=== PATIENT | female | born 1980 | race African-American/Black ===

== ENCOUNTER 2018-01-16 18:29 | Emergency (ER) | payer OTHER ==
[2018-01-16 18:58] VITALS: RESP 18
[2018-01-16] MEDS ORDERED: PANTOPRAZOLE 40 MG/10 ML VIAL IVP STA (20:01)
[2018-01-16] MEDS ORDERED: SODIUM CHLORIDE 0.9% 500 ML IV STA (20:01)
[2018-01-16] MEDS ORDERED: ONDANSETRON 4 MG/2 ML VIAL IVP STA (20:01)
[2018-01-16] MEDS ORDERED: SODIUM CHLORIDE 0.9% 1,000 ML IV STA (20:01)
--- NOTE | 2018-01-16 20:07 | ED ---
General Adult HPI - General Chief complaint: Chest Pain Stated complaint: Chest Discomfort/Back Pain Time Seen by Provider: 01/16/18 19:49 Source: patient, RN notes reviewed Mode of arrival: ambulatory Limitations: no limitations - History of Present Illness Initial comments: Chief complaint history of present illness a 37-year-old female reports that she went to bed last night feeling fine. She awakened this morning with pain to her right flank area. She states her urine is darker than normal. Also complains of pain to her chest with deep breathing. Nausea no vomiting no diarrhea. She reports she did have sweats throughout the day when she was getting her acute attacks of pain to her right flank area. She also reports that there was approximately one hour when the pain is gone away. And then it restarted. - Related Data Previous Rx's Medication Instructions Recorded Hydrocodone/Acetaminophen [[place] 1 each PO Q6HR PRN #10 tab 01/16/18 5-325] Ondansetron Odt [Zofran Odt] 4 mg PO Q8HR PRN #10 tab 01/16/18 Tamsulosin [Flomax] 0.4 mg PO DAILY #5 cap 01/16/18 Allergies Allergy/AdvReac Type Severity Reaction Status Date / Time ketorolac [From Toradol] Allergy Rash/Hives Verified 01/16/18 22:34 Penicillins Allergy Unknown Verified 01/16/18 22:34 Childhood sumatriptan [From Imitrex] Allergy Rash/Hives Verified 01/16/18 22:34 Review of Systems ROS Statement: Those systems with pertinent positive or pertinent negative responses have been documented in the HPI. Review of systems no headache or visual acuity changes chest pain occurs when she takes deep breaths. She has persistent right flank pain radiates around toward the right groin area. States her urine is usually light colored but now is darker in color. Mild discomfort with urinating. Denies any fever or chills. Reports she has been diaphoretic with her nausea. No neuro deficits. All systems are reviewed. Past medical problems significant for having had surgeries followed by areas of large hematomas necessitating at one time a transfusion. Denies ever having had blood clots. She has had surgeries include cholecystectomy, resection C- section total hysterectomy due to endometriosis. Family history cancers include a great-grandmother throat cancer. Patient has ALLERGIES to ketorolac which causes hives penicillin and sumatriptan. The patient does smoke strongly encouraged to stop denies alcohol use. ROS Other: All systems not noted in ROS Statement are negative. Past Medical History Additional Past Medical History / Comment(s): Blood clots History of Any Multi-Drug Resistant Organisms: None Reported Past Surgical History: Bowel Resection, Section, Hysterectomy Past Psychological History: No Psychological Hx Reported Smoking Status: Current every day smoker Past Alcohol Use History: None Reported Past Drug Use History: Marijuana General Exam - General Exam Comments Initial Comments: General: The patient is awake and alert, here with complaints of pain from the right flank area from the front and sometimes chest pain with deep breathing. Sweats nausea but no vomiting. No diarrhea. Vital signs show temperature 98.3 pulse 87 respiratory rate 18 pulse ox 99% room air blood pressure 151/89 in no distress, and does not appear acutely ill. Eye: Pupils are equal, round and reactive to light, extra-ocular movements are intact ; there is normal conjunctiva bilaterally. No signs of icterus. Ears, nose, mouth and throat: There are moist mucous membranes and no oral lesions. Neck: The neck is supple, there is no tenderness . Cardiovascular: There is a regular rate and rhythm. No murmur, rub or gallop is appreciated. Respiratory: Lungs are clear to auscultation, respirations are non-labored, breath sounds are equal. No wheezes, stridor, rales, or rhonchi. Patient states deep breathing does increase chest discomfort. Gastrointestinal: Soft, non-distended, non-tender abdomen without masses or organomegaly noted. There is no rebound or guarding present. No CVA tenderness. Bowel sounds are unremarkable. Back: There is tenderness to palpation in the midline. There is no obvious deformity. Positive right-sided kidney punch. Musculoskeletal: Normal ROM, no tenderness, There is no pedal edema. There is no calf tenderness or swelling. Sensation intact. Pulses equal bilaterally 2+. Neurological: No neuro deficits. Skin: Skin is warm and dry and no rashes or lesions are noted. No rashes and early shingles was discussed. Psychiatric: Cooperative, Limitations: no limitations Course Vital Signs 01/16/18 01/16/18 01/16/18 18:55 21:00 22:16 Temperature 98.3 F Pulse Rate 87 83 96 Respiratory 18 18 18 Rate Blood Pressure 151/89 136/75 139/87 O2 Sat by Pulse 99 96 98 Oximetry EKG Findings - EKG Comments: EKG Findings:: EKG was done and reviewed at 1915 showing normal sinus rhythm no acute ST elevation no ectopy no ischemic changes. Rate was 79 CA interval is 144 QRS 90 QT [address] Blas Medical Decision Making - Medical Decision Making Medical decision making; is a 37-year-old female presents emergency room with several complaints 1 chest discomfort with deep breathing. Also right flank pain that radiates to the right lower quadrant with dark colored urine. Patient denies ever having a kidney stone. She does complain of nausea but no vomiting no diarrhea. She does get sweaty when the pain comes. There are times when the pain entirely goes away. The patient's labs show white count of 9 hemoglobin 11.8 hematocrit of 35.9. Potassium 4.3 with a BUN 21 creatinine 0.8 and GFR greater than 90. Glucose 107. Urine shows 28 red cells. No white cells. Chest x-ray is done and reviewed by radiologist. His impression is no acute process. As read by Dr. Damir Ocampo x-ray of the abdomen was done 2 views and reviewed by radiologist his impression is alcohol gas pattern is normal. No pneumoperitoneum or normal ptosis. No definite calcifications over the renal shadows or the expected course of the ureters or urinary bladder. Soft tissues are unremarkable. Skeletal structures are unremarkable. Visualized lung bases and pleural spaces are unremarkable. Pressure no acute process. As read by Dr. Damir Ocampo. While in the emergency the patient had acute episode of increased pain with nausea. She states she can take morphine which was administered. The patient will have a CAT scan without contrast rule out right ureterolithiasis. Patient did receive partial relief of the pain from the right flank. We did discuss kidney stones etc. CT of the abdomen was done without contrast. And reviewed by radiologist. His significant findings would include kidneys and ureters and bladder there was no hydronephrosis or hydroureter. There are 21 mm right renal nonobstructing calcifications are noted. Bowel no significant abnormality seen. The appendix is normal appearance. It is retrocecal position. Impression no acute process as read by Dr. Damir Ocampo. Clinically still appears though the patient is having renal colic from a renal stone. She may have passed the stone while here. The patient states she wants to go home. The patient be taking a taxi home. Advised to follow with family physician return emergency room as needed. Continue on pain medications and medicine for nausea and the strain her urine for kidney stone. - Lab Data Result diagrams: 01/16/18 20:38 01/16/18 20:38 Lab Results 01/16/18 01/16/18 01/16/18 Range/Units 20:38 20:38 20:38 WBC 9.1 (3.8-10.6) k/uL RBC 4.25 (3.80-5.40) m/uL Hgb 11.8 (11.4-16.0) gm/dL Hct 35.9 (34.0-46.0) % MCV 84.5 (80.0-100.0) fL MCH 27.7 (25.0-35.0) pg MCHC 32.8 (31.0-37.0) g/dL RDW 14.6 (11.5-15.5) % Plt Count 199 (150-450) k/uL Neutrophils % 74 % Lymphocytes % 20 % Monocytes % 4 % Eosinophils % 2 % Basophils % 0 % Neutrophils # 6.7 (1.3-7.7) k/uL Lymphocytes # 1.8 (1.0-4.8) k/uL Monocytes # 0.3 (0-1.0) k/uL Eosinophils # 0.2 (0-0.7) k/uL Basophils # 0.0 (0-0.2) k/uL Sodium 144 (137-145) mmol/L Potassium 4.3 (3.5-5.1) mmol/L Chloride 106 (98-107) mmol/L Carbon Dioxide 25 (22-30) mmol/L Anion Gap 13 mmol/L BUN 21 H (7-17) mg/dL Creatinine 0.80 (0.52-1.04) mg/dL Est GFR (CKD-EPI)AfAm >90 (>60 ml/min/1.73 sqM) Est GFR (CKD-EPI)NonAf >90 (>60 ml/min/1.73 sqM) Glucose 107 H (74-99) mg/dL Plasma Lactic Acid [place] (0.7-2.0) mmol/L Calcium 9.7 (8.4-10.2) mg/dL Total Bilirubin 0.2 (0.2-1.3) mg/dL AST 16 (14-36) U/L ALT 23 (9-52) U/L Alkaline Phosphatase 119 (38-126) U/L Total Creatine Kinase 127 (30-135) U/L CK-MB (CK-2) 0.7 (0.0-2.4) ng/mL CK-MB (CK-2) Rel Index 0.6 Troponin I <0.012 (0.000-0.034) ng/mL Total Protein 6.8 (6.3-8.2) g/dL Albumin 4.0 (3.5-5.0) g/dL Amylase 48 (30-110) U/L Lipase 100 (23-300) U/L Urine Color Urine Appearance (Clear) Urine pH (5.0-8.0) Ur Specific [place] (1.001-1.035) Urine Protein (Negative) Urine Glucose (UA) (Negative) Urine Ketones (Negative) Urine Blood (Negative) Urine Nitrite (Negative) Urine Bilirubin (Negative) Urine Urobilinogen (<2.0) mg/dL Ur Leukocyte Esterase (Negative) Urine RBC (0-5) /hpf Ur Squamous Epith Cells (0-4) /hpf Urine Bacteria (None) /hpf Urine Mucus (None) /hpf 01/16/18 01/16/18 Range/Units 20:38 20:38 WBC (3.8-10.6) k/uL RBC (3.80-5.40) m/uL Hgb (11.4-16.0) gm/dL Hct (34.0-46.0) % MCV (80.0-100.0) fL MCH (25.0-35.0) pg MCHC (31.0-37.0) g/dL RDW (11.5-15.5) % Plt Count (150-450) k/uL Neutrophils % % Lymphocytes % % Monocytes % % Eosinophils % % Basophils % % Neutrophils # (1.3-7.7) k/uL Lymphocytes # (1.0-4.8) k/uL Monocytes # (0-1.0) k/uL Eosinophils # (0-0.7) k/uL Basophils # (0-0.2) k/uL Sodium (137-145) mmol/L Potassium (3.5-5.1) mmol/L Chloride (98-107) mmol/L Carbon Dioxide (22-30) mmol/L Anion Gap mmol/L BUN (7-17) mg/dL Creatinine (0.52-1.04) mg/dL Est GFR (CKD-EPI)AfAm (>60 ml/min/1.73 sqM) Est GFR (CKD-EPI)NonAf (>60 ml/min/1.73 sqM) Glucose (74-99) mg/dL Plasma Lactic Acid [place] 0.9 (0.7-2.0) mmol/L Calcium (8.4-10.2) mg/dL Total Bilirubin (0.2-1.3) mg/dL AST (14-36) U/L ALT (9-52) U/L Alkaline Phosphatase (38-126) U/L Total Creatine Kinase (30-135) U/L CK-MB (CK-2) (0.0-2.4) ng/mL CK-MB (CK-2) Rel Index Troponin I (0.000-0.034) ng/mL Total Protein (6.3-8.2) g/dL Albumin (3.5-5.0) g/dL Amylase (30-110) U/L Lipase (23-300) U/L Urine Color Light Yellow Urine Appearance Clear (Clear) Urine pH 6.5 (5.0-8.0) Ur Specific [place] 1.019 (1.001-1.035) Urine Protein Negative (Negative) Urine Glucose (UA) Negative (Negative) Urine Ketones Negative (Negative) Urine Blood Moderate H (Negative) Urine Nitrite Negative (Negative) Urine Bilirubin Negative (Negative) Urine Urobilinogen <2.0 (<2.0) mg/dL Ur Leukocyte Esterase Negative (Negative) Urine RBC 28 H (0-5) /hpf Ur Squamous Epith Cells 2 (0-4) /hpf Urine Bacteria Rare H (None) /hpf Urine Mucus Rare H (None) /hpf Disposition Clinical Impression: Renal colic on right side, Ureterolithiasis Disposition: HOME SELF-CARE Condition: Fair Instructions: Kidney Stones (ED), Renal Colic (ED) Additional Instructions: Increase fluids. Use pain medication as directed. Strain her urine. Follow- up with family physician is unable to control the pain returned emergency room. Follow-up with urology as needed. Take medication for nausea. Prescriptions: Hydrocodone/Acetaminophen [[place] 5-325] 1 each PO Q6HR PRN #10 tab PRN Reason: Pain Ondansetron Odt [Zofran Odt] 4 mg PO Q8HR PRN #10 tab PRN Reason: Nausea Tamsulosin [Flomax] 0.4 mg PO DAILY #5 cap Referrals: Nonstaff,Physician [REFERRING] - 1-2 days Time of Disposition: 22:59
[2018-01-16 20:51] LABS: Basophils % (A) 0 %; Eosinophils # (A) 0.2 k/uL (0-0.7); Eosinophils % (A) 2 %; HCT 35.9 % (34.0-46.0); HGB 11.8 gm/dL (11.4-16.0); Lymphocytes # (A) 1.8 k/uL (1.0-4.8); Lymphocytes % (A) 20 %; MCH 27.7 pg (25.0-35.0); MCHC 32.8 g/dL (31.0-37.0); MCV 84.5 fL (80.0-100.0); Mean Platelet Volume 8.4; Monocytes # (A) 0.3 k/uL (0-1.0); Monocytes % (A) 4 %; Neutrophils # (A) 6.7 k/uL (1.3-7.7); Neutrophils % (A) 74 %; Platelet Count 199 k/uL (150-450); RBC 4.25 m/uL (3.80-5.40); RDW 14.6 % (11.5-15.5); WBC 9.1 k/uL (3.8-10.6)
[2018-01-16 20:58] LABS: Appearance,Urine Clear (Clear); Bacteria,Urine Rare /hpf; Bilirubin,Urine Negative (Negative); Blood,Urine Moderate (Negative); Color,Urine Light Yellow; Glucose,Urine (UA) Negative (Negative); Ketones,Urine Negative (Negative); Leukocyte Esterase,Urine Negative (Negative); Mucus,Urine Rare /hpf; Nitrite,Urine Negative (Negative); PH, Urine 6.5 (5.0-8.0); Protein,Urine Negative (Negative); RBC,Urine 28 /hpf (0-5); Specific Gravity,Urine 1.019 (1.001-1.035); Squamous Epithelial Cell,Urine 2 /hpf (0-4); Urobilinogen,Urine <2.0 mg/dL (<2.0)
[2018-01-16 21:00] LABS: ALT 23 U/L (9-52); AST 16 U/L (14-36); Alkaline Phosphatase 119 U/L (38-126); Amylase 48 U/L (30-110); Anion Gap 13 mmol/L; Blood Urea Nitrogen 21 mg/dL (7-17); Calcium 9.7 mg/dL (8.4-10.2); Carbon Dioxide 25 mmol/L (22-30); Chloride 106 mmol/L (98-107); Glucose 107 mg/dL (74-99); Lipase 100 U/L (23-300); Potassium 4.3 mmol/L (3.5-5.1); Sodium 144 mmol/L (137-145); Total Bilirubin 0.2 mg/dL (0.2-1.3); Total Protein 6.8 g/dL (6.3-8.2)
--- NOTE | 2018-01-16 21:03 | XR ---
EXAMINATION: XR chest 2V DATE AND TIME: 01/16/2018 8:54 PM ORDERING PROVIDER: Chucky Blas CLINICAL INDICATION: Chest pain with deep breathing TECHNIQUE: PA and lateral COMPARISON: None. DESCRIPTION: The lungs are clear. The pleural spaces are negative. The cardiac silhouette is not enlarged. The mediastinal and pleural silhouettes are unremarkable. The skeletal structures are intact without focal findings. The soft tissues are unremarkable. IMPRESSION: NO ACUTE PROCESS.
[2018-01-16 21:05] LABS: Creatine Kinase 127 U/L (30-135)
--- NOTE | 2018-01-16 21:10 | XR ---
EXAMINATION TYPE: XR abdomen 3V DATE OF EXAM: 01/16/2018 COMPARISON: NONE HISTORY: Right flank pain and generalized abdomen pain TECHNIQUE: One upright and two supine views FINDINGS: Bowel gas pattern is normal. No pneumoperitoneum or pneumatosis. No definite calcifications over the renal shadows or the expected course of the ureters or urinary bl adder. Soft tissues are unremarkable. Skeletal structures are unremarkable. Visualized lung bases and pleural spaces are unremarkable. IMPRESSION: NO ACUTE PROCESS.
[2018-01-16 21:19] LABS: Creatine Kinase MB 0.7 ng/mL (0.0-2.4); Troponin I <0.012 ng/mL (0.000-0.034)
[2018-01-16] MEDS: MORPHINE SULFATE 4MG/4ML SYRG IVP STA ×2 (21:37→22:59)
--- NOTE | 2018-01-16 22:06 | CT ---
EXAMINATION TYPE: CT abdomen pelvis wo con DATE OF EXAM: 01/16/2018 COMPARISON: NONE HISTORY: Right flank pain CT DLP: 1260.8 mGycm Automated exposure control for dose reduction was used. TECHNIQUE: Helical acquisition of images was performed from the lung bases through the pelvis. FINDINGS: LUNG BASES: No significant abnormality is appreciated. LIVER/GB: No significant abnormality is appreciated. PANCREAS: No significant abnormality is seen. SPLEEN: No significant abnormality is seen. ADRENALS: No significant abnormality is seen. KIDNEYS AND URETERS AND BLADDER: There is no hydronephrosis or hydroureter. There are two 1 mm right renal nonobstructing calcifications are noted. FREE AIR: No free air is visualized RETROPERITONEAL ADENOPATHY: None visualized REPRODUCTIVE ORGANS: No significant abnormality is seen PELVIC ADENOPATHY: None visualized. OSSEOUS STRUCTURES: No significant abnormality is seen. BOWEL: No significant abnormality is seen. The appendix has normal appearance. It is retrocecal in p osition. IMPRESSION: NO ACUTE PROCESS.
[2018-01-16] MEDS ORDERED: MORPHINE SULFATE 4MG/4ML SYRG IVP STA (22:54)
[2018-01-16] MEDS ORDERED: MORPHINE SULFATE/PF 10MG/10ML VL IVP STA (22:54)
[2018-01-16] MEDS ORDERED: MORPHINE SULFATE 4MG/4ML SYRG ONE (22:57)
[2018-01-16 23:19] VITALS: BP 134/79; PULSE 79; TEMP 98
== END 2018-01-16 23:18 | disposition home or self-care (01) ==
LOC: EC 18:29
DX: N20.2 Calculus of kidney with calculus of ureter (principal); R07.89 Other chest pain; F17.200 Nicotine dependence, unspecified, uncomplicated; Z88.0 Allergy status to penicillin; Z88.6 Allergy status to analgesic agent; Z88.8 Allergy status to other drugs, medicaments and biological substances; Z90.710 Acquired absence of both cervix and uterus; Z53.8 Procedure and treatment not carried out for other reasons
CPT/HCPCS: 36415; 93005; 80053; 82150; 82550; 82553; 83605; 83690; 84484; 85025; 81001; 87086; 87077; 87186; 71046; 74019; 74176; 99285; 96374; 96375 ×2; 96361 ×2; J2405; C9113; J2270